=== PATIENT | male | born 2000 | race Caucasian/White ===

== ENCOUNTER 2021-07-21 01:56 | Emergency (ER) | payer SELFPAY ==
[2021-07-21] MEDS ORDERED: Sodium Chloride 0.9% 10 ML Syringe FLUSH PRN (03:03)
[2021-07-21] MEDS ORDERED: Sodium Chloride 0.9% 2.5 ML Syringe FLUSH PRN (03:03)
[2021-07-21] MEDS ORDERED: LORazepam 2 MG/ML SDV IVPUSH ONE ×4 (03:06→06:59)
[2021-07-21] MEDS ORDERED: Nicotine 21 MG/24 Hr Patch TRDERM ONE ×2 (03:24→06:00)
[2021-07-21 04:01] LABS: ACETAMINOPHEN <2.0 ug/mL; BLOOD UREA NITROGEN,BUN 6 mg/dL (7.0-18.0); CARBON DIOXIDE,CO2 26.2 mmol/L (21.0-32.0); CHLORIDE,CL 104 mmol/L (98-107); GLUCOSE RANDOM 99 mg/dL (74-106); POTASSIUM,K 3.8 mmol/L (3.5-5.1); SODIUM,NA 142 mmol/L (136-148)
[2021-07-21] MEDS ORDERED: LORazepam 2 MG/ML SDV ONE (04:24)
[2021-07-21] MEDS ORDERED: Iopamidol 755 MG/ML 500 ML Multipack Bottle IVPUSH STA (04:46)
[2021-07-21] MEDS ORDERED: Sodium Chloride 0.9% 1,000 ML IV ONE ×2 (06:58→06:59)
[2021-07-21] MEDS ORDERED: LORazepam 2 MG/ML SDV IM ONE (09:17)
== END 2021-07-21 09:30 ==
LOC: MW.ED 01:56
DX: T14.91XA Suicide attempt, initial encounter (principal); S10.91XA Abrasion of unspecified part of neck, initial encounter; F10.129 Alcohol abuse with intoxication, unspecified; Z20.822 Contact with and (suspected) exposure to COVID-19
CPT/HCPCS: 36415; 70498; 72125; 80053; 80143; 80179; 80305; 80307; 81003; 83735; 84443; 84481; 85025; 87635; 96372; 96374; 96376; 99285; A9270; J2060; J7030; Q9967; U0002

== ENCOUNTER 2021-07-24 00:05 | Emergency (ER) | payer SELFPAY ==
[2021-07-24] MEDS ORDERED: Activated Charcoal/Sorbitol Susp 50 GM/240 ML Tube PO ONE (00:13)
[2021-07-24 01:06] LABS: ACETAMINOPHEN <2.0 ug/mL; BLOOD UREA NITROGEN,BUN 9 mg/dL (7.0-18.0); CARBON DIOXIDE,CO2 29.8 mmol/L (21.0-32.0); CHLORIDE,CL 106 mmol/L (98-107); GLUCOSE RANDOM 107 mg/dL (74-106); POTASSIUM,K 4.1 mmol/L (3.5-5.1); SODIUM,NA 145 mmol/L (136-148)
[2021-07-24] MEDS ORDERED: Nicotine 21 MG/24 Hr Patch TRDERM ONE (05:26)
== END 2021-07-24 09:10 ==
LOC: MW.ED 00:05
DX: T43.222A Poisoning by selective serotonin reuptake inhibitors, intentional self-harm, initial encounter (principal); F10.129 Alcohol abuse with intoxication, unspecified; Y90.6 Blood alcohol level of 120-199 mg/100 ml; Z20.822 Contact with and (suspected) exposure to COVID-19
CPT/HCPCS: 36415; 80053; 80143; 80179; 80305; 80307; 81001; 83735; 85025; 87635; 93005; 99291; 99292; A9270; U0002